=== PATIENT | male | born 1970 | race Caucasian/White ===

== ENCOUNTER 2018-10-23 10:45 | Emergency (ER) | payer OTHER, SELFPAY ==
[2018-10-23 10:50] VITALS: BP 155/85; PULSE 104; RESP 14; TEMP 36.7; O2SAT 97
--- NOTE | 2018-10-23 11:00 | DI.RAD_ITS ---
SYMPTOMS/DIAGNOSIS: SPRAIN/POP IN RIGHT KNEE S/P TRIPPING OVER PIPE RIGHT KNEE: Three views. No acute fracture or dislocation is identified. There is a 5 mm curvilinear metallic foreign body seen in the soft tissues in the suprapatellar region of the knee. Please correlate clinically. The soft tissues are otherwise unremarkable. IMPRESSION: 1. No acute fracture or dislocation. 2. A 5 mm curvilinear foreign body in the suprapatellar soft tissues.
--- NOTE | 2018-10-23 11:00 | ED.GENADUL_ITS ---
Discharge Plan Disposition Patient Disposition: HOME Condition: Good Discharge Details Chief Complaint: Orthopedic Clinical Impression: Right knee sprain Primary Care Provider: None,None ED Provider: Francis Donis Discharge Instructions Instructions: Knee Sprain (ED), RICE Therapy (ED) Additional Instructions: At this time the x-ray shows no evidence of fracture. Please use the crutches to stay off of it for healing. I am concerned that there is a meniscal ligamentous injury. Please take 600 mg of ibuprofen every 6 hours, and 1000 mg of Tylenol every 6 hours. Please use ice as often as possible and keep knee in the brace. 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 In the meantime please follow-up closely with your primary care provider for reassessment. If you notice any worsening of your symptoms, or any new symptoms such as vomiting, diarrhea, fever, chills, shortness of breath, chest pain, numbness, weakness, or fainting , please return immediately to the emergency department for reevaluation. Please follow up with your primary care provider as soon as possible for reassessment and reevaluation. As always, it was a pleasure participating in your medical care today. Stand Alone Forms: Work Release Medical Decision Making This is a pleasant 48-year-old male who presents today for evaluation of right knee pain. Patient has a history of mild problems with the knee in the past, no major events or surgeries though. Today he was walking any tripped over a metal pipe, catching his knee slightly funny, hearing a pop at that time. He did not have any severe pain, however shortly thereafter he began ambulating around on his knees for quite some time due to the nature of his work. Unf ortunately when he tried to get up his knee was locked up, and he had significant pain with any movement. Since then he has been able to flex and extend his knee well however there is some mild resistance and notable pain. Exam demonstrates notable positive Elvin's test, and pain with varus and valgus stressing. No significant joint laxity though. No neurologic deficits, no evidence of vascular compromise. Signs and symptoms appear clinically inconsistent with a knee or patellar dislocation. I suspect he has a bit of a meniscal injury, with mild swelling causing the mild resistance. However because of the location, history, and nature of the pain we will get an x-ray to rule out acute fracture. In the meantime we will give NSAIDs, ice, and Aftab wrap. He will most likely need crutches for the meantime. 11:38 AM Review of x-ray shows no evidence of acute fracture. Mild effusion is present. Suspect ligamentous injury and mild meniscal injury. We will continue recommendation for knee brace, crutches, Tylenol, Motrin and ice. I feel that the patient can follow-up with his PCP, and if he does not have improvement with conservative management may require orthopedic follow-up. With no evidence of neurovascular compromise at this time I do not feel that any further imaging is currently clinically warranted. I have extensively reviewed the treatment plan and discharge instructions with the patient. I have addressed all patient concerns at this time. The patient was made aware of what symptoms to monitor for that would warrant a return to the emergency department. Discussed the plan with the patient, they demonstrate verbal understanding and agreement with our assessment and plan at this time. HPI General Date/Time Provider Initiated Documentation: 10/23/18 10:52 . HPI Narrative: This is a 48-year-old male with no significant past medical history who presents today for evaluation of right knee pain. Patient states that earlier today he tripped over a metal pipe, and he felt like it caught his knee funny. He did not fall or hit his knee at that time. He noticed some stiffness in his knee at that time. Later in the morning he was down on his knees walking around, and when he tried to get up he noticed that his knee felt stuck, and had notable pain. Significantly worse with movement. He felt and heard a pop as he did try to extend his knee again. He admits to radiation of pain a few inches proximal and distal to the knee itself. He denies any weakness. He does admit to mild tingling around the knee on the medial lateral aspect. He does admit to previous mild injuries to the right knee in the past, but no acute surgeries or other significant injuries that he is aware of. He denies any other complaints at this time. No other modifying factors. Related Data Allergies Allergy/AdvReac Type Severity Reaction Status Date / Time shellfish derived Allergy Unverified 10/23/18 11:06 General Stated Complaint: Orthopedic RACHEL: 3 Review of Systems Review of Systems All systems reviewed & are unremarkable except as noted in HPI and below PFSH Social History Do you feel safe at home: Yes Do you feel safe in your relationship?: Yes Exam Narrative Exam Narrative: 1.Const: Well-nourished, Well-developed, appearing stated age 2.Eyes: PERRL, no conjunctival injection, and symmetrical lids. 3.ENT: Atraumatic external nose and ears. Moist MM. Neck: Symmetric, trachea midline, No thyromegaly. 4.CVS: +S1/S2, No murmurs or gallops. Peripheral pulses 2+ and equal in all extremities. Brisk capillary refill in all extremities. 5.RESP: Unlabored respiratory effort. Clear to auscultation bilaterally. No wheezes rales or rhonchi 6.GI: Soft, Nontender/Nondistended, No hepatosplenomegaly. No guarding or rebound. 7.MSK: Normocephalic/Atraumatic, Extremities w/o deformity. No cyanosis or clubbing, Right knee: The knee is stable to varus, valgus, and anterior drawer stress. Notable worsening of pain with varus and valgus stressing. No deformity. Patellar grind test is negative. Elvin test is notably positive for pain. Patient is able to walk but has notable pain. Minimal swelling around the right knee t. No ttp to the patella. Mild tenderness to medial lateral aspect of the knee, but no severe tenderness over the anterior tibial plateau. Minimal tenderness of the proximal fibular head. Dorsalis pedis pulse and posterior tibial pulse +2 bilaterally. Brisk capillary refill. 8.Skin: Warm, Dry. No rashes or lesions. 9.Neuro: quill skinner II-XII grossly intact. Sensation grossly intact, no focal neurologic deficits. Sensation intact in the foot, knee, and calf. No evidence of neurologic deficit. 10.Psych: (AAO) x3. Appropriate mood and affect Course Vital Signs Temperature 36.7 C 10/23/18 10:50 Pulse 104 H 10/23/18 10:50 Respiratory Rate 14 10/23/18 10:50 Blood Pressure 155/85 H 10/23/18 10:50 Pulse Oximetry 97 10/23/18 10:50 Temperature 36.7 C 10/23/18 10:50 Temperature Source Temporal Artery Scan 10/23/18 10:50 Pulse 104 H 10/23/18 10:50 Respiratory Rate 14 10/23/18 10:50 Respiratory Effort Non-Labored 10/23/18 10:55 Blood Pressure 155/85 H 10/23/18 10:50 Blood Pressure Position Sitting 10/23/18 10:50 Pulse Oximetry 97 10/23/18 10:50 Oxygen Delivery Method Room Air 10/23/18 10:50 Oxygen Flow Rate 0 10/23/18 10:50 Pain Level 7 10/23/18 10:56
[2018-10-23] MEDS: Ibuprofen 600 MG TAB (11:06)
[2018-10-23] MEDS: Acetaminophen 500 MG TAB (11:06)
--- NOTE | 2018-10-24 17:06 | PDOC.ERCMPRO ---
- If Service Date Differs Date of service: 10/24/18 Time of Service: 17:06 Care Management Progress Note CM contacted [facility] primary care, to schedule a follow up appointment. Per report the primary care is not able to take on a new patient until they receive all of the past medical records. CM contact patient he states that his leg is more swollen and that he needs to be seen. CM directed the patient to the [place] ED and they will direct him to occupational med to have him seen today which is open until 8:00 pm this evening. Scott agrees to the plan he reports that the foreign object in his knee is an old piece of copper from a work related injury in the past. Scott agrees to go to the ED and be seen, CM faxed the ED visit paperwork from 10/23/18.
== END 2018-10-23 12:18 | disposition home or self-care (01) ==
LOC: ER 11:52
PROVIDERS: Emergency Provider Student in an Organized Health Care Education/Training Program
DX: S83.91XA Sprain of unspecified site of right knee, initial encounter (principal); W01.198A Fall on same level from slipping, tripping and stumbling with subsequent striking against other object, initial encounter; M25.461 Effusion, right knee
CPT/HCPCS: 29505; 73562; 99283; E0114; L1810